=== PATIENT | male | born 1950 | race Caucasian/White ===

== ENCOUNTER → 2024-04-07 14:17 | Outpatient (REF) | payer MEDICARE, SELFPAY ==
[2024-04-10 09:28] LABS: HPV, High Risk Not Detected; HPV, High Risk Source Anal
== END ==
LOC: CLAB 14:17
PROVIDERS: ATTENDING PHYSICIAN Physician Assistant
DX: Z72.51 High risk heterosexual behavior (principal)
CPT/HCPCS: 87624; 88112